=== PATIENT | female | born 1990 | race Caucasian/White ===

== ENCOUNTER → 2018-07-14 09:36 | Outpatient (CLI) | payer MEDICAID, SELFPAY ==
--- NOTE | 2018-07-14 09:44 | RAD_ITS ---
STUDY: AIR-CONTRAST UPPER GI SERIES AND SMALL BOWEL FOLLOW-THROUGH EXAMINATION. REASON FOR EXAM: Female, 27 years old. 5 year history of cramping and bloody stools. Possible Crohn's disease. FLUOROSCOPY TIME (if supplied): (1:41) minutes/seconds. 34 spot images were obtained. TECHNIQUE: The patient ingested barium. Multiple images of the esophagus, stomach and duodenum were obtained. Following this, a small bowel follow-through examination was performed. COMPARISON: None. FINDINGS: The esophagus is unremarkable. No mass lesion is seen. There is no evidence of obstruction. No evidence of gastroesophageal reflux. The stomach and duodenum are unremarkable. There is no evidence of ulceration. A small bowel follow-through examination was then obtained. There is no evidence of intrinsic or extrinsic small bowel disease. Terminal ileum is unremarkable. RAD/Upper GI/w Small Bowel IMPRESSION: Unremarkable air contrast upper GI series and small bowel follow-through examination. Electronically Signed: Garrett Barros MD at 15:43 EDT Tel [phone], Service support ,
== END ==
PROVIDERS: Family Provider Internal Medicine; PCP Internal Medicine; Visit Provider Nurse Practitioner Adult Health
DX: R19.4 Change in bowel habit (principal); R11.0 Nausea; K26.5 Chronic or unspecified duodenal ulcer with perforation
CPT/HCPCS: 74249

== ENCOUNTER 2020-07-26 14:48 | Emergency (ER) | payer BC, SELFPAY ==
[2020-07-26 14:50] VITALS: BP 128/87; PULSE 127; RESP 16; TEMP 36.8; O2SAT 99; BMI 46.0
--- NOTE | 2020-07-26 15:47 | ED.VIS.GEN ---
History of Present Illness Chief Complaint: Headache Informant: Patient Narrative: Patient states that for the last several days she has had a swelling in the right side of her neck that is tender. She notes a headache that comes up over the top of her head to the front. She denies any recent infections. She notes some dizziness. Past Medical History - Allergies and Home Meds Allergies/Adverse Reactions: Allergies No Known Allergies Allergy (Verified 07/26/20 14:50) Primary Care Physician: Liat Zhao MD [Primary Care Provider] - Prior records reviewed: Yes Past Medical History: - - History of MRSA abscesses Surgical History: noncontributory Smoking Status: Former smoker Drugs: None Review of Systems General: Denies: Chills, Fever, Sweats Eyes: Denies: Visual changes - bilaterally, Diplopia ENT: Denies: Rhinorrhea, Sore throat Cardiovascular: Denies: Chest pain, Palpitations Respiratory: Denies: Dyspnea, Cough, Dyspnea on exertion Gastrointestinal: Denies: Abdominal pain, Nausea, Vomiting, Diarrhea, Melena, Hematochezia Genitourinary: Denies: Dysuria, Hematuria, Frequency Musculoskeletal: Reports: Neck pain. Denies: Back pain, Extremity Pain Skin: Denies: Rash, Wounds Neurological: Reports: Headache. Denies: Weakness, Numbness Physical Exam Vital Signs/Narrative: Vital Signs Temp Pulse Resp BP Pulse Ox 07/26/20 14:50 98.2 F 127 H 16 128/87 H 99 Inital Vital Signs reviewed: Yes General: Well nourished, Well developed, No Acute Distress Head: Normocephalic, Atraumatic Eyes: Perrl, EOMI ENT: Moist mucous membranes, No rhinorrhea Neck: Supple, Nontender, - - There is a less than 1 cm apparent lymph node in the right posterior chain that is tender to palpation. It is still mobile. There is no erythema or obvious abscess. Cardiovascular: Regular rate, Regular rhythm, No murmurs Respiratory: No distress, CTA bilaterally, Chest nontender Abdomen: Soft, Nontender, Nondistended, Normal bowel sounds Back: Nontender, Normal Inspection Extremities: Nontender, No edema Skin: Normal color, No rash Neurological: Alert, Oriented x3, Cranial nerves II-XII grossly intact, Normal Strength, Normal Sensation Psychological: Normal affect, Normal Mood Diagnostic/Tx/Re-eval - Medical Decision Making I did a bedside ultrasound. I do not see a fluid collection. This appears to be a lymph node. We will place her on Bactrim as she has a history of MRSA. Patient to follow-up with his doctor next week. ED Disposition - Plan for ED Patient: Disposition: Home or Assisted Living Diagnosis: Lymphadenitis, acute Instructions: ED ADENITIS Cervical Abx Tx Prescriptions: Smz/Tmp Ds [Bactrim Ds] 1 tab PO BID #14 tab Prescription Printed Referrals: Liat Zhao MD [Primary Care Provider] - 1 Week
[2020-07-26 16:08] VITALS: PULSE 120; RESP 16; O2SAT 99
== END 2020-07-26 16:11 | disposition home or self-care (01) ==
LOC: ED 16:02
PROVIDERS: Emergency Provider Emergency Medicine; PCP Internal Medicine
DX: L04.9 Acute lymphadenitis, unspecified (principal); Z87.891 Personal history of nicotine dependence
CPT/HCPCS: 99282

== ENCOUNTER 2020-10-31 13:29 | Emergency (ER) | payer BC, SELFPAY ==
[2020-10-31 13:30] VITALS: BP 125/90; PULSE 107; RESP 18; TEMP 36.1; O2SAT 100; BMI 43.9
--- NOTE | 2020-10-31 13:51 | EKG12_ITS ---
Test Reason : CP Blood Pressure : / mmHG Vent. Rate : 100 BPM Atrial Rate : 100 BPM P-R Int : 118 ms QRS Dur : 086 ms QT Int : 336 ms P-R-T Axes : 047 083 050 degrees QTc Int : 433 ms Normal sinus rhythm Normal ECG Confirmed by LEE MCCAULEY, MALACHI ([id number]), video editor JALEEL FALLON ([id number]) on 11/01/2020 9:36:08 AM Referred By: DIANA Confirmed By:MALACHI HOWARD MD
--- NOTE | 2020-10-31 13:51 | RAD_ITS ---
STUDY: X-RAY CHEST REASON FOR EXAM: Female, 29 years old. COUGH TECHNIQUE: Single AP portable view of the chest. COMPARISON: Comparison is made with prior examination of 10/10/2017. FINDINGS: The lungs are clear and expanded. There is no demonstrated pleural abnormality. Normal size heart. Normal mediastinum and cary. Normal visualized pulmonary arteries. Normal visualized aortic arch and descending thoracic aorta. Normal visualized thoracic spine. Normal visualized ribs, clavicles, and shoulders. There is no demonstrated abnormality of the visualized soft tissue structures of the upper abdomen. RAD/Chest 1 View (Portable) IMPRESSION: Normal x-ray examination of the chest. Electronically Signed: Garrett Barros, at 14:25 EST , Service support ,
--- NOTE | 2020-10-31 13:52 | ED.DCSUM_ITS ---
- ER Visit Summary Date of Service: 10/31/20 Chief Complaint: [Chest pain] History of Present Illness: The patient is a 29 F [presents to the emergency department complaint of chest pain is started 3 days ago. Patient describes a sharp pain is worse with breathing. She denies any trauma. She denies any r ecent travel. No history of PE or DVT. Patient had a negative COVID-19 test in July and denies any known exposures. She denies fever. She does have a cough and at times bringing up small amount of sputum. Patient states that she feels like there is a rattling in her chest. Patient had a telehealth visit and was referred to the emergency department today. Patient does have the NuvaRing contraceptive. No family history of heart disease.] Physical Examination: [HEENT-PERRLA, EOMI. Cranial nerves II through XII grossly intact. TMs clear. Mucous membranes moist. No adenopathy. Cardiovascular-regular rate and rhythm without murmur or ectopy Lungs-aeration bilaterally. No tachypnea. No accessory muscle use or retractions. She had a few faint rales in the right base. Abdomen-normoactive bowel sounds, soft, nontender, no rebound or rigidity, no peritoneal signs. Extremities-intact ?4, normal range of motion, normal pulses, atraumatic] Test Results: [EKG obtained arrival shows sinus rhythm with a ventricular rate of 100 bpm with no acute ST segment changes.] CBC with differential obtained was unremarkable. Chemistries unremarkable. Troponin less than 0.015. Covid 19 test was negative. Chest x-ray interpreted by myself as normal and radiology in agreement. There is no evidence of pneumothorax or infiltrate noted. D-d queenie was elevated 0.54 therefore CTA of the chest was ordered and results are pending Emergency Department Course and Treatment: [Line established. Patient placed on court recording monitor.] Treatment Plan: [I feel patient can be discharged to home if she has a negative CTA of the chest. Care of patient turned over to evening physician awaiting CTA results.] Disposition: [Pending CTA results] Impression: [Atypical chest pain] This note was generated with Ekoation software. It may contain incorrect words, spelling, and punctuation that were not noted in review of the chart prior to signing <Rina Elliott - Last Filed: 10/31/20 15:03> - ER Visit Summary Date of Service: 10/31/20 Clinical Impression(s) from Imaging Studies Chest CTA 10/31/20 14:52 IMPRESSION: Normal CTA chest examination, without a demonstrated pulmonary embolism or arterial dissection. Electronically Signed: Garrett Patsysandraameena, at 15:27 EST , Service support , <Zafar Garcia - Last Filed: 10/31/20 15:33> ED Disposition <Rina Elliott - Last Filed: 10/31/20 15:03> <Zafar Garcia - Last Filed: 10/31/20 15:33> - Plan for ED Patient: Instructions: ED Chest Pain, Uncertain Cause Prescriptions: Naproxen [Naprosyn] 500 mg PO BID PRN #20 tab Prescription Printed Referrals: Liat Zhao MD [Primary Care Provider] - 3-5 Days
[2020-10-31] MEDS: 0.9% Normal Saline 1,000 ML 150 ML IV (14:19)
[2020-10-31 14:20] VITALS: O2SAT 97
[2020-10-31 14:30] LABS: Absolute Lymphocyte Count 3.71 X10^3/uL (0.83-4.51); Absolute Neutrophil Count 6.3 X10^3/uL (2.0-7.7); Basophil# 0.07 X10^3/uL; Basophil% 0.6 % (0-1); Eosinophil# 0.42 X10^3/uL; Eosinophils% 3.8 % (0-5); Hematocrit 43.9 % (37-47); Hemoglobin 14.2 g/dL (12.0-15.0); Lymphocyte # 3.71 X10^3/ul (4.0); Lymphocyte % 33.4 % (19-41); Mean Corp Hgb Conc 32.3 g/dL (32-36); Mean Corpuscular Hgb 28.3 pg (27.0-32.0); Mean Corpuscular Volume 87.6 fL (81-99); Mean Platelet Vol. 10.2 fl (6.2-12.0); Monocyte# 0.56 X10^3/uL; NRBC Flagged by Analyzer 0 % (0-5); Neutrophil # 6.32 X10^3/uL (2.7-7.7); Neutrophil % 56.9 % (47-70); Platelet Count 356 K/mm3 (150-450); RBC Distribution Width CV 13.4 % (11.6-14.6); RBC Distribution Width SD 43.2 fl (35.1-43.9); Red Blood Count 5.01 M/mm3 (4.2-5.4); White Blood Count 11.1 K/mm3 (4.4-11.0)
[2020-10-31 14:48] LABS: Anion Gap 6 (5-15); BUN 7 mg/dL (7-18); BUN/Creat Ratio 11.5 RATIO (10-20); Calcium,Total 9.3 mg/dL (8.5-10.1); Chloride 108 mmol/L (98-107); Creatinine, Serum 0.61 mg/dL (0.55-1.02); EST Glomerular Filtration Rate 123 mL/min (>60); Est Glom Filt Rate - Afr Amer 149 mL/min (>60); Estimated Creatinine Clearance 112.57 ml/min; Glucose 87 mg/dL (74-106); Potassium 4.2 mmol/L (3.5-5.1); Sodium Level 141 mmol/L (136-145)
[2020-10-31 14:51] LABS: D-Dimer Quantitative (DVT/PE) 0.54 FEU/ug/m (0.27-0.49)
--- NOTE | 2020-10-31 14:52 | CT_ITS ---
STUDY: CTA CHEST REASON FOR EXAM: Female, 29 years old. SOB AND BACK PAIN RADIATION DOSAGE (If Supplied By Facility): CTDIvol = ( 16.19 ) mGy, DLP = ( 585.47 ) mGycm TECHNIQUE: The examination was performed with the intravenous administration of IV 100ML ISOVUE 370. Post-processing of the angiographic images was performed, with multiplanar reformation and 3D reconstruction. Individualized dose optimization techniques were used for this CT. COMPARISON: Comparison is made with prior study dated 10/10/2017. FINDINGS: Normal enhancement of the main pulmonary artery and right and left pulmonary arteries. Normal enhancement of the bilateral peripheral pulmonary arteries. There is no demonstrated pulmonary embolism. Normal thoracic aorta and visualized great vessels. There is no demonstrated aortic dissection. Normal heart and pericardium. Normal mediastinum. Normal hilar regions. Normal visualized trachea and bronchi. The lungs are well expanded. Calcified granuloma in the peripheral aspect of the right lower lobe. Normal pleura. Normal chest wall structures. Normal osseous structures. Normal visualized upper abdomen. CT/CTA Chest W/WO Contrast IMPRESSION: Normal CTA chest examination, without a demonstrated pulmonary embolism or arterial dissection. Electronically Signed: Garrett Barros, at 15:27 EST , Service support ,
--- NOTE | 2020-10-31 15:04 | ED.DEP ---
ED Disposition - Plan for ED Patient: Instructions: ED Chest Pain, Uncertain Cause Prescriptions: Naproxen [Naprosyn] 500 mg PO BID PRN #20 tab Prescription Printed Referrals: Liat Zhao MD [Primary Care Provider] - 3-5 Days
[2020-10-31 15:41] VITALS: BP 129/86; PULSE 82; RESP 16; RESP 20; O2SAT 100
== END 2020-10-31 15:49 | disposition home or self-care (01) ==
PROVIDERS: Emergency Provider Emergency Medicine; PCP Internal Medicine
DX: R07.89 Other chest pain (principal)
CPT/HCPCS: 71045; 71275; 80048; 84484; 85025; 85379; 87426; 93005; 96360; 99284; J7030; Q9967; A4216

== ENCOUNTER 2022-07-21 18:50 | Outpatient (CLI) | payer BC, SELFPAY ==
[2022-07-21 19:25] VITALS: BP 100/56; PULSE 85; TEMP 36.7
[2022-07-21 20:06] VITALS: BMI 33.8
--- NOTE | 2022-07-21 21:08 | OB.TRI.NOTE ---
HPI - General HPI Narrative JAMILA OLIVEROS, is a 31 F at 36.4 weeks gestation who presents to triage with decreased movement. Stated has felt some movement today but very minimal tonight. Only counted 5 movements in 2 hours. Denies any contractions, loss of fluid or vaginal bleeding. Maternal Data Information LOVELY Calculator Estimated Delivery Date Method Current WG Current Estimate 08/15/22 Manual 36w 4d PFSH PFSH Home Medications Lisdexamfetamine Dimesylate [Vyvanse] 20 mg PO BREAKFAST 07/26/20 [History Last Taken Unknown] lisdexamfetamine 10 mg capsule 10 mg PO LUNCH 07/26/20 [History Last Taken Unknown] etonogestrel 0.12 mg-ethinyl estradiol 0.015 mg/24 hr vaginal ring 1 ea VG 10/31/20 [History Last Taken Unknown] fexofenadine 60 mg tablet 60 mg PO DAILY 10/31/20 [History Last Taken Unknown] naproxen 500 mg tablet 500 mg PO BID PRN #20 tabs 10/31/20 [Rx Last Taken Unknown] sertraline 25 mg tablet 25 mg PO DAILY 10/31/20 [History Last Taken Unknown] Allergy/AdvReac Type Severity Reaction Status Date / Time No Known Allergies Allergy Verified 07/21/22 20:11 Social History Smoking Status: Never smoker ROS Eyes Eyes: Denies blurry vision Cardiovascular Cardiovascular: Reports none; Denies chest pain at rest, chest pain with activity or dizziness Respiratory/Chest Respiratory/Chest: Denies cough or dyspnea Gastrointestinal Gastrointestinal: Reports none and other; Denies diarrhea or vomiting Genitourinary Genitourinary: Denies dysuria Musculoskeletal Musculoskeletal: Reports none Integumentary Integumentary: Reports none; Denies rash Neurologic Neurologic: Denies dizziness, headache(s) or other visual disturbances Psychiatric Psychiatric: Reports none Physical Exam Const alert and no apparent distress General Appearance: cooperative Orientation / Consciousness: awake Exam Limitations: no limitations HEENT normocephalic Eyes General Eye: normal appearance of both eyes Neck full ROM Chest inspection of chest normal Resp normal respiratory effort and normal air movement Effort and Inspection: symmetric chest movement Auscultation: clear to auscultation bilaterally Cardio regular rate GI soft to palpation, non-tender and non-distended Inspection: and other Back/Spine normal ROM Extremity full ROM, normal capillary refill and no calf tenderness Skin no rashes or lesions noted Neuro oriented x3 and CN's II-XII intact bilaterally Psych mental status grossly normal NST FHR Rate Baby A Baseline: 130 Variability:: Moderate Accelerations:: 15 x 15 Decelerations:: None NST Reactive:: Yes FHR Category:: Category I Uterine Activity:: occasional contraction Assessment & Plan (1) 36 weeks gestation of : (2) Decreased movement: PLAN: Plan NST reactive- Cat. 1 tracing Patient has felt increased movement upon entering triage Discharge home with kick count instructions and follow up in office
== END 2022-07-21 19:45 | disposition home or self-care (01) ==
LOC: WPOUT 18:54 → WP 18:55
PROVIDERS: PCP Internal Medicine; Visit Provider Advanced Practice Midwife
DX: O36.8130 Decreased fetal movements, third trimester, not applicable or unspecified (principal); Z3A.36 36 weeks gestation of pregnancy
CPT/HCPCS: 59025; 59050; 99218; G0378

== ENCOUNTER 2022-08-05 20:35 | Outpatient (CLI) | payer BC, SELFPAY ==
[2022-08-05 20:46] VITALS: BP 121/73; PULSE 87
[2022-08-05 20:54] VITALS: O2SAT 98
[2022-08-05 20:56] VITALS: TEMP 36.5
[2022-08-05 21:10] VITALS: BMI 35.0
--- NOTE | 2022-08-05 22:29 | OB.TRI.HP_ITS ---
HPI - General HPI Narrative JAMILA OLIVEROS, is a 31 F at 38.4 weeks gestation who presents to triage with contractions. patient stated she started feeling contractions earlier today and they have continued to increase in frequency and pain. Denies any loss of fluid or vaginal bleeding. Positive movement. Patient has a history of delivery. Maternal Data Information LOVELY Calculator Estimated Delivery Date Method Current WG Current Estimate 08/15/22 Manual 38w 5d PFSH PFSH Home Medications sertraline 25 mg tablet 75 mg PO DAILY depression 10/31/20 [History Last Taken 08/05/22] pvovvukt-ozv-Xo-FA 1 mg tablet 1 tab PO 08/05/22 [History Last Taken Unknown] Allergy/AdvReac Type Severity Reaction Status Date / Time No Known Allergies Allergy Verified 08/05/22 21:13 Social History Smoking Status: Never smoker Visit Details OB Flowsheet Initial Weight: Not Recorded Date -?-?-?-?-?-?-?-?-?-?-?-?- EGA Weight BP Urine Prot -?-?-?-?-?-?-?-?-?-?-?-?- Glucose FHR FuHt Pres Dilation -?-?-?-?-?-?-?-?-?-?-?-?- Effaced St Visit Note 08/05/22 -?-?-?-?-?-?-?-?-?-?-?-?- 38w 4d 197 lb 12.074 oz 121/73 -?-?-?-?-?-?-?-?-?-?-?-?- -?-?-?-?-?-?-?-?-?-?-?-?- ROS Eyes Eyes: Denies blurry vision Cardiovascular Cardiovascular: Reports none; Denies chest pain at rest, chest pain with activity or dizziness Respiratory/Chest Respiratory/Chest: Denies cough or dyspnea Gastrointestinal Gastrointestinal: Reports none and other; Denies diarrhea or vomiting Genitourinary Genitourinary: Denies dysuria Musculoskeletal Musculoskeletal: Reports none Integumentary Integumentary: Reports none; Denies rash Neurologic Neurologic: Denies dizziness, headache(s) or other visual disturbances Psychiatric Psychiatric: Reports none Physical Exam Const alert and no apparent distress General Appearance: cooperative and comfortable Exam Limitations: no limitations HEENT normocephalic Eyes General Eye: normal appearance of both eyes Neck full ROM General: normal visual inspection Chest Chest: symmetrical chest wall rise Resp normal respiratory effort and normal air movement Effort and Inspection: symmetric chest movement Auscultation: clear to auscultation bilaterally Cardio regular rate and regular rhythm GI normal to inspection, nondistended, normoactive bowel sounds Back/Spine normal ROM Extremity full ROM and no calf tenderness General Extremity: normal exam except as noted Skin no rashes or lesions noted Neuro CN's II-XII intact bilaterally Psych mental status grossly normal NST FHR Rate Baby A Baseline: 145 Variability:: Moderate Accelerations:: 15 x 15 Decelerations:: None NST Reactive:: Yes FHR Category:: Category I Uterine Activity:: None via TOCO or palpation Assessment & Plan (1) 38 weeks gestation of : (2) Uterine contractions: PLAN: Plan NST reactive- cat. 1 tracing NO contractions noted via TOCO or palpation CE- /-3- no change from last week's exam D/C home with follow up in office for scheduled OB visit Labor precautions and kick counts reviewed
== END 2022-08-05 22:40 | disposition home or self-care (01) ==
LOC: WPOUT 20:38 → WP 20:38
PROVIDERS: PCP Internal Medicine; Visit Provider Advanced Practice Midwife
DX: O47.1 False labor at or after 37 completed weeks of gestation (principal); Z3A.38 38 weeks gestation of pregnancy
CPT/HCPCS: 59025; 59050; 99218; G0378

== ENCOUNTER 2022-08-07 04:15 | Inpatient (IN) | payer BC, SELFPAY ==
[2022-08-07] VITALS (41 sets, daily range): BP systolic 93–132; BP diastolic 49–90; PULSE 68–99; RESP 14–18; TEMP 36.1–36.7; O2SAT 90–100; BMI 34.7
[2022-08-07] MEDS: LACTATED RINGERS 500 ML 999 ML IV (04:40)
[2022-08-07 04:53] LABS: Absolute Lymphocyte Count 3.74 X10^3/uL (0.83-4.51); Absolute Neutrophil Count 6.2 X10^3/uL (2.0-7.7); Basophil# 0.06 X10^3/uL; Basophil% 0.5 % (0-1); Eosinophil# 0.18 X10^3/uL; Eosinophils% 1.6 % (0-5); Hemoglobin 12.7 g/dL (12.0-15.0); Lymphocyte # 3.74 X10^3/ul (0.83-4.51); Lymphocyte % 33.9 % (19-41); Mean Corp Hgb Conc 32.6 g/dL (32-36); Mean Corpuscular Hgb 30.4 pg (27.0-32.0); Mean Corpuscular Volume 93.3 fL (81-99); Monocyte# 0.82 X10^3/uL; Monocyte% 7.4 % (0-10); NRBC Flagged by Analyzer 0 % (0-5); Neutrophil # 6.17 X10^3/uL (2.7-7.7); Platelet Count 202 K/mm3 (150-450); RBC Distribution Width CV 12.5 % (11.6-14.6); RBC Distribution Width SD 43.3 fl (35.1-43.9); Red Blood Count 4.18 M/mm3 (4.2-5.4)
[2022-08-07] MEDS: Lactated Ringers 1,000 ML 200 ML IV (05:11)
[2022-08-07] MEDS: fentaNYL-bupivacaine (epidural) 100 ML BAG EPIDURAL (05:48)
[2022-08-07] MEDS: Oxytocin 10 UNITS/ML Vial IM (08:05)
--- NOTE | 2022-08-07 09:56 | HP.PCM.OB_ITS ---
HPI - General General Date of Admission: 08/07/22 HPI Narrative JAMILA OLIVEROS, is a 31 F who presents at 38w6d in active labor. complicated by depression, poor historian and history of gastric sleeve. Maternal Data Information LOVELY Calculator Estimated Delivery Date Method Current WG Current Estimate 08/15/22 Manual 38w 6d PFSH PFSH Medical History (Updated 08/07/22 @ 19:58 by Camila Jacobs CNM) Depression History of pre-term labor depression Home Medications sertraline 25 mg tablet 75 mg PO DAILY depression 10/31/20 [History Last Taken 08/06/22] [id number] 1 mg tablet 1 tab PO 08/05/22 [History Last Taken 08/06/22] Allergy/AdvReac Type Severity Reaction Status Date / Time No Known Allergies Allergy Verified 08/05/22 21:13 Surgical History (Updated 08/07/22 @ 04:37 by Yudi Forrester) History of gynecologic surgery History of surgery Social History Smoking Status: Never smoker History Elective abortions Hx Para 3 Spontaneous abortions Hx # Term Pregnancies Ectopic pregnancies Hx # Pregnancies Multiple births # of living children Visit Details OB Flowsheet Initial Weight: Not Recorded Date -?-?-?-?-?-?-?-?-?-?-?-?- EGA Weight BP Urine Prot -?-?-?-?-?-?-?-?-?-?-?-?- Glucose FHR FuHt Pres Dilation -?-?-?-?-?-?-?-?-?-?-?-?- Effaced St Visit Note 08/07/22 -?-?-?-?-?-?-?-?-?-?-?-?- 38w 6d 196 lb 3.382 oz 93/5 0 122/73 120/77 116/74 132/90 126/85 120/83 120/74 118/70 113/58 121/61 106/58 113/57 116/56 115/60 111/59 105/58 113/64 106/59 121/61 96/51 116/58 -?-?-?-?-?-?-?-?-?-?-?-?- -?-?-?-?-?-?-?-?-?-?-?-?- NST FHR Rate Baby A Baseline: 145 Variability:: Moderate Accelerations:: 15 x 15 Decelerations:: None FHR Category:: Category I Uterine Activity:: every 2-3 minutes, strong Vital Signs Vital Signs Vital Signs: 08/07/22 04:03 08/07/22 04:03 08/07/22 04:04 Temperature Temperature Source Temporal Pulse Rate 84 Blood Pressure 93/50 L BP Systolic 93 BP Diastolic 50 Pulse Ox 08/07/22 04:04 08/07/22 04:04 08/07/22 05:24 Temperature 96.9 F L Temperature Source Pulse Rate 81 Blood Pressure BP Systolic BP Diastolic Pulse Ox 98 08/07/22 05:24 08/07/22 05:25 08/07/22 05:25 Temperature Temperature Source Pulse Rate 84 Blood Pressure BP Systolic BP Diastolic Pulse Ox 99 90 08/07/22 05:28 08/07/22 05:28 08/07/22 05:29 Temperature Temperature Source Pulse Rate 99 84 Blood Pressure 122/73 H BP Systolic 122 BP Diastolic 73 Pulse Ox 08/07/22 05:29 08/07/22 05:34 08/07/22 05:34 Temperature Temperature Source Pulse Rate 85 Blood Pressure 120/77 BP Systolic 120 BP Diastolic 77 Pulse Ox 100 08/07/22 05:34 08/07/22 05:34 08/07/22 05:38 Temperature Temperature Source Pulse Rate 82 Blood Pressure 116/74 BP Systolic 116 BP Diastolic 74 Pulse Ox 100 08/07/22 05:38 08/07/22 05:39 08/07/22 05:39 Temperature Temperature Source Pulse Rate 90 80 Blood Pressure BP Systolic BP Diastolic Pulse Ox 100 08/07/22 05:43 08/07/22 05:43 08/07/22 05:44 Temperature Temperature Source Pulse Rate 85 81 Blood Pressure 132/90 H BP Systolic 132 BP Diastolic 90 Pulse Ox 08/07/22 05:44 08/07/22 05:49 08/07/22 05:49 Temperature Temperature Source Pulse Rate 87 Blood Pressure 126/85 H BP Systolic 126 BP Diastolic 85 Pulse Ox 99 08/07/22 05:50 08/07/22 05:50 08/07/22 05:53 Temperature Temperature Source Pulse Rate 79 Blood Pressure 120/83 H BP Systolic 120 BP Diastolic 83 Pulse Ox 99 08/07/22 05:53 08/07/22 05:55 08/07/22 05:55 Temperature Temperature Source Pulse Rate 81 84 Blood Pressure BP Systolic BP Diastolic Pulse Ox 99 08/07/22 05:58 08/07/22 05:58 08/07/22 06:00 Temperature Temperature Source Pulse Rate 83 81 Blood Pressure 120/74 BP Systolic 120 BP Diastolic 74 Pulse Ox 08/07/22 06:00 08/07/22 06:04 08/07/22 06:04 Temperature Temperature Source Temporal Pulse Rate Blood Pressure 118/70 BP Systolic 118 BP Diastolic 70 Pulse Ox 98 08/07/22 06:04 08/07/22 06:04 08/07/22 06:05 Temperature 97.5 F L Temperature Source Pulse Rate 81 87 Blood Pressure BP Systolic BP Diastolic Pulse Ox 08/07/22 06:05 08/07/22 06:08 08/07/22 06:08 Temperature Temperature Source Pulse Rate 73 Blood Pressure 113/58 L BP Systolic 113 BP Diastolic 58 Pulse Ox 100 08/07/22 06:42 08/07/22 06:42 08/07/22 06:42 Temperature Temperature Source Pulse Rate 82 Blood Pressure 121/61 H BP Systolic 121 BP Diastolic 61 Pulse Ox 99 08/07/22 06:43 08/07/22 06:43 08/07/22 07:18 Temperature 97.5 F L Temperature Source Temporal Pulse Rate Blood Pressure 106/58 L BP Systolic 106 BP Diastolic 58 Pulse Ox 08/07/22 07:18 08/07/22 08:24 08/07/22 08:24 Temperature Temperature Source Pulse Rate 75 82 Blood Pressure 113/57 L BP Systolic 113 BP Diastolic 57 Pulse Ox 08/07/22 08:38 08/07/22 08:38 08/07/22 08:39 Temperature Temperature Source Pulse Rate 93 86 Blood Pressure 116/56 L BP Systolic 116 BP Diastolic 56 Pulse Ox 08/07/22 08:39 08/07/22 08:38 08/07/22 08:38 Temperature 97.1 F L Temperature Source Temporal Pulse Rate Blood Pressure BP Systolic BP Diastolic Pulse Ox 100 08/07/22 08:53 08/07/22 08:53 08/07/22 09:08 Temperature Temperature Source Pulse Rate 75 Blood Pressure 115/60 111/59 L BP Systolic 115 111 BP Diastolic 60 59 Pulse Ox 08/07/22 09:08 08/07/22 09:18 08/07/22 09:18 Temperature Temperature Source Pulse Rate 77 72 Blood Pressure BP Systolic BP Diastolic Pulse Ox 98 08/07/22 09:22 08/07/22 09:22 08/07/22 09:23 Temperature 97.4 F L Temperature Source Temporal Pulse Rate Blood Pressure 105/58 L BP Systolic 105 BP Diastolic 58 Pulse Ox 08/07/22 09:23 08/07/22 09:38 08/07/22 09:38 Temperature Temperature Source Pulse Rate 72 75 Blood Pressure 113/64 BP Systolic 113 BP Diastolic 64 Pulse Ox 08/07/22 09:40 08/07/22 09:40 08/07/22 09:53 Temperature Temperature Source Pulse Rate 78 Blood Pressure 106/59 L BP Systolic 106 BP Diastolic 59 Pulse Ox 97 08/07/22 09:53 Temperature Temperature Source Pulse Rate 78 Blood Pressure BP Systolic BP Diastolic Pulse Ox Weight Weight: 196 lb 3.382 oz Body Mass Index (BMI) 34.7 Physical Exam Const alert and oriented x3 General Appearance: cooperative Orientation / Consciousness: awake, oriented to person, oriented to place and oriented to time Exam Limitations: no limitations HEENT normocephalic Head and Scalp: normal to inspection, normocephalic and atraumatic Face and Sinus: normal facial exam Eyes General Eye: normal appearance of both eyes Neck full ROM Chest Chest: symmetrical chest wall rise Resp normal respiratory effort and normal air movement Auscultation: clear to auscultation bilaterally Cardio regular rate, regular rhythm, S1 normal heart sound, S2 normal heart sound, no murmurs, no rub, no gallops and no clicks GI normal to inspection, nondistended, normoactive bowel sounds and non-tender appearance of the vagina normal Bladder / Kidney Exam: no CVA tenderness Back/Spine normal ROM Extremity normal to inspection and full ROM Skin no rashes or lesions noted Neuro oriented x3, CN's II-XII intact bilaterally and moves all extremities Sensorium / Orientation: awake, alert and oriented to person Motor Exam: clonus absent Deep Tendon Reflexes: Rt Patellar (L4): 2+ and Lt Patellar (L4): 2+ Labs Labs Labs: Blood Type O POSITIVE Antibody Screen NEGATIVE Hct 39.0 % (37-47) Hgb 12.7 g/dL (12.0-15.0) Rhogam given: No GBS negative O positive RPR negative Rubella Positive HBsAG negative HepC negative HIV non reactive GC/CT negative Assessment & Plan (1) Active labor at term: PLAN: Plan 1) Admit to labor and delivery 2) EFM 3) Routine labs 4) GBS negative 5) Epidural for pain management 6) AROM clear fluid 7) collaborative physician
--- NOTE | 2022-08-07 09:56 | EX.PCM.OBRPT ---
Assessment & Plan (1) Vaginal delivery: (2) First degree perineal laceration: Maternal Data Information LOVELY Calculator Estimated Delivery Date Method Current WG Current Estimate 08/15/22 Manual 38w 6d Vaginal Delivery Maternal Presentation Maternal Presentation: Active Labor Operative Information Date of Procedure: 08/07/22 Pre-Operative Diagnosis: Active labor Post-Operative Diagnosis: , first degree perineal Surgery / Procedure Performed: Spontaneous Vaginal Delivery Type of Anesthesia: Epidural Estimated Blood Loss: 300 ml Time of Delivery: 08:02 Findings Description of Procedure: Progressed to complete with urge to push. Epidural for pain management and ineffective. of viable male over first degree perineal laceration. APGARS 8,9 respectively. head delivered with body immediately forthcoming. Placed on maternal abdomen, strong cry. Mouth and nares suctioned for secretions. Pitocin for active 3rd stage management. Cord doubly clamped and cut after pulsations ceased, delayed cord clamping. Placenta delivered intact via dirk, 3 vessel cord intact. Perineum inspected and revealed first degree perineal laceration. Repaired with 3.0 vicryl rapide and lidocaine. Fundus firm and hemostasis achieved. EBL 300ml. Mom and baby stable, planning to breastfeed. Family bonding well. Dr. Chacko notified of delivery. Presentation: Vertex Amniotic Membrane Rupture Type: Artificial Amniotic Fluid Description: Clear Placental Delivery Description: Spontaneous Placenta Disposition: [facility] Cord Vessel Description: 3 Vessels Cord Entanglement: None Infant A Gender: Male (1 minute): 8 (5 minute): 9 Delayed Cord Clamping: Yes Post Vaginal Delivery Medications Given After Delivery: - (IM pitocin) Episiotomy Description: None Laceration: Perineal Extension/lac and 1st degree Complication Complications: None
[2022-08-07] MEDS: Acetaminophen 500 MG Tablet 1000 MG PO ×2 (12:00→18:46)
[2022-08-07] MEDS: Prenatal Vits Tablet 1 TABLET PO (21:31)
[2022-08-07] MEDS: Sertraline 50 MG Tablet 75 MG PO (21:31)
[2022-08-08 03:02] VITALS: BP 99/51; PULSE 78; RESP 18; TEMP 36.5; O2SAT 97
[2022-08-08 05:19] LABS: Hematocrit 34.4 % (37-47); Hemoglobin 11.1 g/dL (12.0-15.0); Mean Corp Hgb Conc 32.3 g/dL (32-36); Mean Platelet Vol. 10.8 fl (6.2-12.0); Platelet Count 198 K/mm3 (150-450); RBC Distribution Width CV 12.6 % (11.6-14.6); White Blood Count 12.9 K/mm3 (4.4-11.0)
[2022-08-08] MEDS: Acetaminophen 500 MG Tablet 1000 MG PO (05:59)
[2022-08-08 08:30] VITALS: BP 90/53; PULSE 91; RESP 18; TEMP 36.1; O2SAT 98
--- NOTE | 2022-08-08 10:38 | CASEMGMT ---
Addendum entered by Eleanor Carl 08/08/22 11:17: Please note: SW completed assessment on 08/08/22 at 10:20am. JERSON Moreno Original Note: Social Work Assessment Labor and Delivery Unit Date/Time of Referrals: 08/07/22 at9:10 and 12:38 Referred by: Camila Jacobs Reason for referral: Anxiety/Depression on zoloft, hx PPD History obtained from:MOB, FOB present but did not participate. SW did ask FOB to leave while discussing mental health Household Composition: MOB, FOB, 10 yr old and 5 yr old and now baby Woo. MOB and FOB Nikolay Hickman have been together for 5 years. This is their first child together. The 10 year old and 5 year old children's fathers are not involved. Patient's parent/guardian status: MOB and FOB are guardians of this child. Medical History: MOB: history of gastric sleeve, depression, post depression, gall bladder surgery. Baby: Woo born 08/07/[birth year] at 8:02am, Apgars 8 and 9 at 1 and 5 minutes. weight 3.605 grams. Cardiac murmur. Educational Status: MOB finished high school, did two semesters of college. FOB: finished high school, went into the Financial Status: No concerns. FOB works at [employer] in the [employer]. 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 MOB does plan to return to work after 10 weeks of maternity leave. She is undecided if she will return to [employer] however. Infant Supplies: They have all needed supplies including car seat, clothing, diapers, wipes, crib/bassinet. MOB plans to breast feed. Childcare/Caregivers: The older children go to [employer] after school. They are not sure yet about childcare for the baby. MOB explains that FERNANDO works 2nd shift, so there is a 2 hour gap that they will need to cover from when FOB leaves for work and MOB comes home. Transportation: They have transportation Programs/Agencies Involved: None Children's Services/Legal Issues: None Behavioral Health Issues: SW asked FOB to leave at this time to speak w/MOB alone. As per MOB, FERNANDO has no mental health concerns. MOB: History of depression, anxiety and depression. MOB states she is on Zoloft and this helps. She has been in counseling in the past but did not find it overly helpful. She states she is stable and is managing well at this time. MOB states had PPD after the of her first child, but states that circumstances were different then. MOB did not elaborate on this. SW did ask about the 8 year old who was adopted. She states that this child was adopted by her friends and she has always felt this was the right decision for her and her child, has no regrets about this and has never felt badly about it. Substance Abuse: No history of substance abuse for MOB or FOB as per MOB. No toxicology screens on MOB or baby on this admission. MOB reports no safety concerns at home. Family/Social Stressors: MOB reports no stressors other than having a with an almost six year old, and how to balance this. Support Systems: MOB's dad, best friend. FOB's friends, uncle Depression and Anxiety/Shaken Baby/Safe Sleeping/[facility] Resources/Help Me Grow/Mental Health Resources/Mental Health Hotline: SW provided information and reviewed information on all of these topics. SW reviewed in particular signs and symptoms of depression. SW explained to MOB that if she is having increased symptoms to reach out to her physician, as sometimes medication may be adjusted. MOB states understanding. SW also explained that short term counseling can also be beneficial, MOB states understanding. Assessment: MOB spoke w/SW, answered questions, though briefly. MOB's affect somewhat flat. MOB able to verbalize that she is stable in regard to depression and anxiety, and will reach out should she have an increase in symptoms to her doctor regarding medication. MOB holding baby, appropriate in care of baby. FOB also appropriate, though did not participate in conversation. Plan: Baby to go home at time of discharge with MOB and FOB. No further social service worker warranted at this time. JERSON Moreno
--- NOTE | 2022-08-08 12:03 | DS.PCM_ITS ---
Providers Date of Admission: 08/07/22 Date of Discharge: 08/08/22 Primary Care Physician: Dr. Liat Zhao MD Reason For Visit: VAG DELIVERY Diagnosis Discharge Diagnosis (1) Vaginal delivery: Status: Acute Code(s): O80 - Encounter for full-term uncomplicated delivery (2) First degree perineal laceration: Status: Acute Code(s): O70.0 - First degree perineal laceration during delivery Medications at Discharge Home Medications sertraline 25 mg tablet 75 mg PO DAILY depression 10/31/20 [id number] 1 mg tablet 1 tab PO 08/05/22 acetaminophen 500 mg tablet 1,000 mg PO Q6H PRN PRN Pain 1-10 Or Fever #0 tabs 08/08/22 Physical Exam Const alert, oriented x3 and no apparent distress HEENT normocephalic GI soft to palpation, non-tender and non-distended GI Narrative: fundus firm, mid & below umbilicus Extremity normal to inspection and no calf tenderness Weight / BMI Weight Weight: 196 lb 3.382 oz Body Mass Index (BMI) 34.7 ABG / Lab / Microbiology Data Result Diagrams: 08/08/22 05:10 Laboratory: Laboratory Results - last 24 hr 08/08/22 05:10: WBC 12.9 H, RBC 3.70 L, Hgb 11.1 L, Hct 34.4 L, MCV 93.0, MCH 30.0, MCHC 32.3, RDW Std Deviation 43.0, RDW Coeff of Jaime 12.6, Plt Count 198, MPV 10.8 Microbiology: Microbiology 08/07/22 04:40 Nasal Secretion SARS-CoV-2 Antigen (Rapid) - Final D/C Instructions Discharge Diet: No restrictions Discharge Activity: May Not Shower May resume sexual activity in: 6 weeks Weight Bearing Status: Weight bearing as tolerated Call your doctor if you observe: Fever of 101 or Higher, Change in Color, Inability to urinate, Using more than 1 pad per hour, Shortness of breath, Di zziness, Fainting spells, Swelling in the ankles, Prolonged hiccupping, Increased palpitations (irregular heartbeat) and Uncontrolled pain Please Follow Up With: Camila Jacobs CNM When: 2 weeks Meaningful Use Info Meaningful Use Diagnoses (Choose all that apply): None applicable Discharge Plan Admission Admit Date/Time: 08/07/22 04:15 Primary Reason for Your Visit: Vaginal delivery Attending Provider: Camila Jacobs Primary Care Provider: Liat Zhao Instructions Patient Instructions: After a Vaginal Discharge Orders/Prescriptions Prescriptions: New acetaminophen 500 mg Tablet 1,000 mg PO Q6H PRN PRN (Reason: Pain 1-10 Or Fever) Qty: 0 0RF Continued sertraline 25 MG tablet 75 mg PO DAILY [id number] 1 mg Tablet 1 tab PO Referrals / Follow Up: Liat Zhao MD [Primary Care Provider] - Disposition Disposition (needs filled in before D/C Order can be placed): Home, Self Care
--- NOTE | 2022-08-08 12:07 | PCM.PN.OB ---
Subjective Subjective No complaints Objective Data Objective Data Vital Signs: Vital Signs Temp Pulse Resp BP Pulse Ox O2 Del Method 97.0 F L 91 18 90/53 L 98 Room Air 08/08/22 08:30 08/08/22 08:30 08/08/22 08:30 08/08/22 08:30 08/08/22 08:30 08/08/22 08:30 Oxygen Delivery Method Room Air Weight: 196 lb 3.382 oz Body Mass Index (BMI) 34.7 Intake & Output: Intake and Output for Last 24 Hours 08/06/22 08/07/22 08/08/22 23:59 23:59 23:59 Intake Total 1246.67 / 1246.67 Output Total 600 / 600 Balance 646.67 / 646.67 Lab / Micro Data Result Diagrams: 08/08/22 05:10 Labs: Laboratory Results - last 24 hr 08/08/22 05:10: WBC 12.9 H, RBC 3.70 L, Hgb 11.1 L, Hct 34.4 L, MCV 93.0, MCH 30.0, MCHC 32.3, RDW Std Deviation 43.0, RDW Coeff of Jaime 12.6, Plt Count 198, MPV 10.8 Micro: Microbiology 08/07/22 04:40 Nasal Secretion SARS-CoV-2 Antigen (Rapid) - Final Physical Exam Const alert, oriented x3 and no apparent distress HEENT normocephalic GI soft to palpation, non-tender and non-distended GI Narrative: fundus firm, mid & below umbilicus Extremity normal to inspection and no calf tenderness Assessment & Plan (1) Vaginal delivery: COMMENT: PPD#1 PLAN: discharge to home
[2022-08-08 12:15] VITALS: BP 106/57; PULSE 77; RESP 16; TEMP 36.1; O2SAT 96
== END 2022-08-08 12:30 | disposition home or self-care (01) | DRG 807 ==
LOC: WPOUT 04:20 → WP 04:20
PROVIDERS: Admitting Provider Advanced Practice Midwife; PCP Internal Medicine; Visit Provider Advanced Practice Midwife
DX: O99.344 Other mental disorders complicating childbirth (principal); Z37.0 Single live birth; F32.A Depression, unspecified; M41.9 Scoliosis, unspecified; O99.892 Other specified diseases and conditions complicating childbirth; O70.0 First degree perineal laceration during delivery; Z3A.38 38 weeks gestation of pregnancy; Z98.84 Bariatric surgery status; Z79.899 Other long term (current) drug therapy; Z87.59 Personal history of other complications of pregnancy, childbirth and the puerperium
CPT/HCPCS: 59025; 59050; 85025; 85027; 86850; 86900; 86901; 87426; 99218; J7120; G0378; J3490